=== PATIENT | female | born 1980 | race Caucasian/White ===

== ENCOUNTER 2017-08-09 09:25 | Day surgery (SDC) | payer BC ==
[~2017-08-09] VITALS: Ht 175.3 cm; Wt 79.4 kg
[2017-08-09] MEDS ORDERED: ALBUTEROL SULFATE 0.083% 2.5 MG/3 ML VIAL.NEB INH ONE (11:02)
[2017-08-09] MEDS ORDERED: HYDROcodone/ACETAMIN 5-325 MG TAB (NORCO/ VICODIN) PO PRN (13:15)
[2017-08-09] MEDS ORDERED: DEXAMETHASONE SOD PHOSPHATE 4 MG/ML VIAL ONE (13:35)
[2017-08-09] MEDS ORDERED: MIDAZOLAM HCL 5 MG/ML VIAL (VERSED) IV ONE (13:35)
[2017-08-09] MEDS ORDERED: LIDOCAINE 1% 10 MG/ML, 20 ML MDV ONE (13:35)
[2017-08-09] MEDS ORDERED: NS IRRIG SOLN 1000 ML IR ONE (13:35)
[2017-08-09] MEDS ORDERED: MEPERIDINE HCL/PF 50 MG/ML AMP ONE ×2 (13:35→14:01)
[2017-08-09] MEDS ORDERED: SEVOFLURANE 15 MIN GAS INH ONE (13:35)
[2017-08-09] MEDS ORDERED: PROPOFOL 200MG/ 20ML VIAL (DIPRIVAN) IV ONE (13:35)
[2017-08-09] MEDS ORDERED: BACITRACIN 1 GM OINT TP ONE (13:35)
[2017-08-09] MEDS ORDERED: LR 1,000 ML IV.SOLN IV ONE (13:35)
[2017-08-09] MEDS ORDERED: CEFAZOLIN 2 GM IVPB PREMIX 50 ML IV ONE (13:35)
[2017-08-09] MEDS ORDERED: fentaNYL CITRATE/PF 100 MCG/2 ML AMP ONE (13:35)
[2017-08-09] MEDS ORDERED: WATER FOR IRRIGATION,STERILE 1,000 ML IRRIG.SOLN IR ONE (13:35)
[2017-08-09] MEDS ORDERED: KETOROLAC TROMETHAMINE 30 MG VIAL ONE (13:35)
[2017-08-09] MEDS ORDERED: ONDANSETRON HCL 4 MG/2 ML VIAL ONE ×2 (13:35→14:00)
[2017-08-09] MEDS ORDERED: LIDOCAINE/EPI 1% 1:100000 20 ML VIAL INJ ONE (13:35)
[2017-08-09] MEDS ORDERED: OXYMETAZOLINE HCL 0.05% NASAL SPRAY NS ONE (13:35)
[2017-08-09] MEDS ORDERED: fentaNYL CITRATE 250 MCG/5 ML AMP ONE (13:35)
[2017-08-09] MEDS ORDERED: KETOROLAC TROMETHAMINE 30 MG VIAL IVP ONE (13:45)
[2017-08-09] MEDS ORDERED: fentaNYL CITRATE/PF 100 MCG/2 ML AMP IVP PRN (13:45)
[2017-08-09] MEDS ORDERED: MEPERIDINE HCL/PF 25 MG/ML DISP.SYRIN IVP PRN (13:45)
[2017-08-09] MEDS ORDERED: ONDANSETRON HCL 4 MG/2 ML VIAL IVP ONE (13:45)
[2017-08-09] MEDS ORDERED: HYDROmorphone 1 MG INJ. 1 MG/ML AMPUL IVP PRN (13:45)
[2017-08-09] MEDS ORDERED: NALOXONE HCL 0.4 MG/ML AMP (NARCAN) IVP ONE (13:45)
[2017-08-09] MEDS ORDERED: MIDAZOLAM HCL 5 MG/5 ML VIAL IVP PRN (13:45)
[2017-08-09 17:06] VITALS: BP_SYST 110
== END 2017-08-09 15:40 | disposition home or self-care (01) ==
LOC: SDS 09:25 → SMU 09:26 → SDS 15:40
PROVIDERS: ATTEND Otolaryngology Plastic Surgery within the Head & Neck
DX: J32.4 Chronic pansinusitis (principal); J33.9 Nasal polyp, unspecified
CPT/HCPCS: 31253; 31259; 31267; 88305; 88311; 94640; A4649; J0690; J1100; J1885; J2001; J2175; J2250; J2405; J2704; J3010 ×2; J7120; J7613